=== PATIENT | female | born 1990 | race Caucasian/White ===

== ENCOUNTER 2016-06-26 14:50 | Emergency (ER) | payer OTHER ==
[~2016-06-26 14:50] MED LIST: FLUOXETINE40 MG PO; LORAZEPAM0.5 MG PO; NUVARING1 ICR VG
--- NOTE | 2016-06-26 15:58 | ED CARDIAC/CP/PALPITATIONS ---
History of Present Illness General Chief Complaint: General Adult Stated Complaint: C/P HX OF ANXIETY/PANIC ATTACKS SINCE 1300 Source: patient Exam Limitations: no limitations Vital Signs & Intake/Output Vital Signs & Intake/Output Vital Signs Date Time Temp Pulse Resp B/P B/P Pulse O2 O2 Flow FiO2 Mean Ox Delivery Rate 06/26 1736 96.0 71 16 115/74 98 Room Air 06/26 1458 111 20 126/86 96 Room Air Allergies Coded Allergies: sertraline (From ZOLOFT) (PER PT MORE DEPRESSED AND SI 06/26/16) Uncoded Allergies: ALL SSRI (MAKES SI 06/26/16) Reconcile Medications Clonazepam 0.5 MG TABLET 1 TAB PO BIDP PRN MENTAL HEALTH (Reported) Duloxetine HCl 30 MG CAPSULE.DR 1 CAP PO DAILY MENTAL HEALTH (Reported) Etonogestrel/Ethinyl Estradiol (Nuvaring Vaginal Ring) 0.12 MG -0.015 MG/24 HR VAG.RING 1 EACH VG Q30D CONTROL (Reported) use for 3 weeks, skip for 1 week Loratadine (Claritin) 10 MG TABLET 1 TAB PO DAILY ALLERGIES (Reported) Multivitamin With Minerals (Hair, Skin & Nails) 1 EACH TABLET 1 TAB PO DAILY SUPPLEMENT (Reported) Triage Note: PER PT WHEN STRESSED OUT DEVELOP CP ON AND OFF FOR AWHILE. 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 LMP END OF MAY Triage Nurses Notes Reviewed? yes Onset: Abrupt Duration: constant Timing: recent history Quality/Severity: severe Location: substernal Radiation: no radiation Activities at Onset: emotional stress : No Patient currently breastfeeds: No HPI: Patient is a 25-year-old female with past medical history of panic attacks and anxiety and stress-induced chest pain with patient states that for many months now she's had stress-induced chest pain however today at work approximately at 1300 patient had acute onset of chest substernal heaviness where patient was in a stressful environment while at work patient at that time had symptoms of nausea and dizziness however this has resolved. Chest pain still continues. Patient is compliant with Klonopin she took this this morning. Patient also started on Wednesday Cymbalta prescribed by her psychiatrist. Patient denies any illicit drug use. Denies any cardiac history, patient also denies any family history of cardiac before the age of 55. Patient does use a NuvaRing Past History Travel History Traveled to [place] past 21 day No Medical History Any Pertinent Medical History? 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 No Review of Systems Review of Systems Constitutional: Reports: no symptoms. EENTM: Reports: no symptoms. Respiratory: Reports: no symptoms. Cardiovascular: Reports: see HPI, chest pain. GI: Reports: see HPI. Genitourinary: Reports: no symptoms. Musculoskeletal: Reports: no symptoms. Skin: Reports: no symptoms. Neurological/Psychological: Reports: no symptoms. Hematologic/Endocrine: Reports: no symptoms. Immunologic/Allergic: Reports: no symptoms. All Other Systems: Reviewed and Negative Physical Exam Physical Exam General Appearance: no apparent distress, alert, comfortable Cardiovascular: regular rate/rhythm Comments: Well-developed well-nourished person in no acute distress HEENT: Normal EENT exam, Neck: Supple, no lymphadenopathy, normal range of motion without pain or tenderness Back: Nontender, no CVA tenderness. Cardiovascular: Regular rate and rhythms no murmurs rubs or gallops, normal JVP Respiratory: Chest nontender. No respiratory distress.breath sounds clear to auscultation bilaterally Abdomen: Soft, nontender nondistended, no appreciable organomegaly. Normal bowel sounds. No ascites Extremity: No edema, no calf tenderness to palpation, normal and equal pulses. Neuro: Alert oriented x3, motor sensory normal, Skin: No appreciable rash on exposed skin, skin is warm and dry. Psych: Mood and affect is normal, memory and judgment is normal. Core Measures ACS in differential dx? Yes Severe Sepsis Present: No Septic Shock Present: No Progress Differential Diagnosis: AMI, aortic dissection, atrial fibrillation, cholecystitis, CHF/pulm edema, hyperkalemia, hypovolemia, hyperthyroid, hyperventilation, musculoskeletal pain, myocarditis, pancreatitis, pericarditis, pneumonia, pneumothorax, PSVT, pulmonary embolism, PUD/GERD, PVCs/PACs, unstable angina, V-fib/V-Tach, WPW syndrome, ANXIETY, PANIC ATTACK Plan of Care: Orders Procedure Date/time Status THYROID STIMULATING HORMONE 06/26 162 Complete FREE T4 06/26 162 Complete Telemetry/Fulfillment Associate 06/26 1613 Active TROPONIN LEVEL 06/26 1609 Complete HUMAN BETA HCG SCREEN 06/26 160 Complete D-DIMER 06/26 160 Complete COMPREHENSIVE METABOLIC PANEL 06/26 160 Complete CBC WITHOUT DIFFERENTIAL 06/26 160 Complete EKG 06/26 1458 Active Laboratory Tests 06/26/16 1620: Anion Gap 10, Estimated GFR > 60, BUN/Creatinine Ratio 15.7, Glucose 91, Calcium 9.0, Total Bilirubin 0.3, AST 19, ALT 35, Alkaline Phosphatase 68, Troponin I < 0.01, Total Protein 7.1, Albumin 4.1, Globulin 3.0, Albumin/Globulin Ratio 1.4, TSH 1.900, Free T4 1.21, Total Beta HCG NEGATIVE, D-Dimer < 200, CBC w Diff NO MAN DIFF REQ, RBC 4.88, MCV 83.7, MCH 27.8, RDW 13.3, MPV 10.8 H, Gran % 46.7, Lymphocytes % 40.1, Monocytes % 8.8, Eosinophils % 3.6, Basophils % 0.8, Absolute Granulocytes 3.5, Absolute Lymphocytes 3.0, Absolute Monocytes 0.7 H, Absolute Eosinophils 0.3, Absolute Basophils 0.1, PUBS MCHC 33.3 06/26/16 1614: TSH Cancelled, Free T4 Cancelled Patient currently is resting comfortably no apparent distress denies any medications for symptoms when offered Patient was offered on medications medications for her symptoms and she declines. Patient had unremarkable EKG cardiac markers and d-dimer essentially ruling out pulmonary embolism. Due to history of present illness there is suspicion of patient's symptoms of panic attack causing chest pain. Patient however was strongly advised to follow up with certified pathology assistant in to return to emergency room if symptoms worsen. Upon discharge patient looks well no apparent distress and will comply with discharge instructions and had no questions (DEANDRA ESCAMILLA,BRITTA) Diagnostic Imaging: Viewed by Me: Radiology Read. Radiology Impression: no acute abnormality Initial ED EKG: normal p-waves, normal QRS complex, normal sinus rhythm, 90 BPM, NSR Comments: PATIENT: KATHRYN TORRES PRESENT AGE: 25 PATIENT ACCOUNT NO: [id number] : 88 LOCATION: [facility] ORDERING PHYSICIAN: BRITTA ESCAMILLA SERVICE DATE: 06/26/16 EXAM TYPE: RAD - XRY-CHEST XRAY, PA AND LATERAL EXAMINATION: CHEST 2 VIEWS CLINICAL INFORMATION: Chest pain. COMPARISON: None. TECHNIQUE: PA and lateral views of the chest were obtained. FINDINGS: The cardiac silhouette is not enlarged. The mediastinal and hilar contours are unremarkable. There are neither pleural effusions nor pneumothoraces. There are no consolidations. The osseous structures are unremarkable. IMPRESSION: No evidence for acute disease. DICTATED BY: KAMALA RUFFIN MD DATE/TIME DICTATED:06/26/161731 ROTATING FIELD ASSEMBLER:TOMER Parekh Departure Disposition: HOME OR SELF CARE Condition: Stable Clinical Impression Primary Impression: Panic attack Secondary Impressions: Chest pain Referrals: DAVIS BAR,POLI Retana (PCP/Family) Additional Instructions: As discussed continue home medications as directed. On Wednesday please follow up and establish certified pathology assistant Dr. Perla for further evaluation treatment. Follow- up next week with your psychiatrist for further evaluation treatment. If symptoms worsen or if you develop a new concerning symptom return to emergency room immediately Departure Forms: Customer Survey General Discharge Information Critical Care Note Critical Care Note Critical Care Time: non-applicable
[2016-06-26] MEDS ORDERED: CLONAZEPAM0.5 M2 PO (16:14)
[2016-06-26] MEDS ORDERED: DULOXETINE HCL30 MG PO (16:14)
[2016-06-26] MEDS ORDERED: HAIR, SKIN & N1 EACH PO (16:16)
[2016-06-26] MEDS ORDERED: CLARITIN10 M1 PO (16:16)
[2016-06-26] MEDS ORDERED: NUVARING VAGIN1 EACH VG (16:17)
[2016-06-26 16:34] LABS: ABSOLUTE BASOPHIL COUNT 0.1 /CUMM (0.0-0.2); ABSOLUTE EOSINOPHIL COUNT 0.3 /CUMM (0.0-0.7); ABSOLUTE GRANULOCYTE CT 3.5 /CUMM (1.4-6.5); ABSOLUTE MONOCYTE COUNT 0.7 /CUMM (0.10-0.60); BASOPHIL % 0.8 % (0.0-2.0); EOSINOPHIL % 3.6 % (0-5); GRANULOCYTE % 46.7 % (42.2-75.2); HEMATOCRIT 40.8 % (37-47); MEAN CORPUSCULAR HGB 27.8 PG (27.0-31.0); MEAN CORPUSCULAR HGB CONC 33.3 G/DL (33.0-37.0); MEAN CORPUSCULAR VOLUME 83.7 FL (81.0-99.0); MEAN PLATELET VOLUME 10.8 FL (7.4-10.4); PLATELET COUNT 185 /CUMM (130-400); RBC DISTRIBUTION WIDTH 13.3 % (11.5-14.5); RED BLOOD CELL CT 4.88 /CUMM (4.20-5.40); WHITE BLOOD CELL COUNT 7.5 /CUMM (4.8-10.8)
[2016-06-26 17:36] VITALS: BP 115/74
--- NOTE | 2016-06-26 17:37 | RADIOLOGY REPORT ---
EXAMINATION: CHEST 2 VIEWS CLINICAL INFORMATION: Chest pain. COMPARISON: None. TECHNIQUE: PA and lateral views of the chest were obtained. FINDINGS: The cardiac silhouette is not enlarged. The mediastinal and hilar contours are unremarkable. There are neither pleural effusions nor pneumothoraces. There are no consolidations. The osseous structures are unremarkable. IMPRESSION: No evidence for acute disease.
== END 2016-06-26 18:14 ==
LOC: ERH 14:50
PROVIDERS: Physician Assistant
DX: F41.0 Panic disorder [episodic paroxysmal anxiety] (principal); R07.89 Other chest pain
CPT/HCPCS: 93005; 93010

== ENCOUNTER 2016-07-25 21:58 | Emergency (ER) | payer OTHER ==
[~2016-07-25 21:58] MED LIST changes: +CLARITIN10 M1 PO; +CLONAZEPAM0.5 M2 PO; +DULOXETINE HCL30 MG PO; +HAIR, SKIN & N1 EACH PO; +NUVARING VAGIN1 EACH VG
[2016-07-25 22:06] VITALS: BP 118/79
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
[2016-07-26] MEDS ORDERED: IBUPROFEN600 M1 PO (00:45)
[2016-07-26] MEDS ORDERED: PERCOCET 5-3251 EACH PO (00:45)
[2016-07-26] MEDS ORDERED: BACLOFEN10 M1 PO (00:45)
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
== END 2016-07-26 01:01 ==
LOC: ERH 21:58
DX: S19.9XXA Unspecified injury of neck, initial encounter (principal); S33.5XXA Sprain of ligaments of lumbar spine, initial encounter; V49.60XA Unspecified car occupant injured in collision with unspecified motor vehicles in traffic accident, initial encounter; Y92.9 Unspecified place or not applicable
CPT/HCPCS: 72050; 72110; 81025